=== PATIENT | male | born 1975 | race Caucasian/White ===

== ENCOUNTER 2017-03-20 00:15 | Emergency (ER) | payer SELFPAY ==
[~2017-03-20] VITALS: Ht 182.9 cm; Wt 65.8 kg
[2017-03-20 01:35] VITALS: BP 118/72
[2017-03-20] MEDS ORDERED: IBUPROFEN 600 MG TABLET. PO ONE (02:30)
[2017-03-20] MEDS ORDERED: CEPHALEXIN 250 MG CAPSULE. PO ONE (02:30)
[2017-03-20] MEDS ORDERED: traMADol 50 MG TABLET PO ONE (02:30)
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
[2017-03-20] MEDS ORDERED: TRAM-48 PO (03:09)
[2017-03-20] MEDS ORDERED: CEPH-264 PO (03:09)
[2017-03-20] MEDS ORDERED: IBUP-1007 PO (03:09)
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
== END 2017-03-20 03:19 | disposition home or self-care (01) ==
LOC: ER 00:15
DX: S01.311A Laceration without foreign body of right ear, initial encounter (principal); S20.212A Contusion of left front wall of thorax, initial encounter; S09.90XA Unspecified injury of head, initial encounter; F10.920 Alcohol use, unspecified with intoxication, uncomplicated; Y08.09XA Assault by strike by other specified type of sport equipment, initial encounter; Y93.89 Activity, other specified; Y99.8 Other external cause status; Y92.89 Other specified places as the place of occurrence of the external cause
CPT/HCPCS: 70450; 71020; 72125; 99284-25